=== PATIENT | female | born 1960 | race Caucasian/White ===

== ENCOUNTER 2019-06-06 23:51 | Emergency (ER) | payer MEDICARE ==
[~2019-06-06] VITALS: Ht 165.1 cm; Wt 80.7 kg
[2019-06-07 00:07] VITALS: BP 124/83
--- NOTE | 2019-06-07 00:08 | NUR ---
ED Nurse Note: Patient walked in to ER c/o lower back pain 04/28. Stated that helped her friend to pull her up and after that having severe lower back pain. AAO x4, VSS at this time, skin is warm to touch.
[2019-06-07] MEDS: Ketorolac 60mg Inj IM ONE (01:00)
--- NOTE | 2019-06-07 01:05 | NUR ---
ED Nurse Note: pt refused medication decadron, pt states it doesn't work. ERMD notified.
[2019-06-07] MEDS: Dexamethasone 4mg/ml vial IM ONE ×2 (01:15→01:51)
[2019-06-07] MEDS ORDERED: GABAPENTIN400 MG ORAL (01:28)
--- NOTE | 2019-06-07 01:50 | NUR ---
ED Nurse Note: pt states she wants to try decadron, ERMD notified, given med per ERMD order via IM injection, pt tolerated well.
[2019-06-07 01:59] VITALS: BP 115/80
--- NOTE | 2019-06-07 02:00 | NUR ---
ED Nurse Note: pt cleared to be d/c per ERMD, pt discharge and aftercare instruction provided w/ prescription, pt education done via discussion and handout, pt advised to follow up with pcp or ortho specialist, or return to ed if changes in condition, pt vss, ambulates w/ steady gait, left w/ all belongings.
--- NOTE | 2019-06-09 22:00 | Emergency Room Report ---
History of Present Illness General Chief Complaint: Back Pain-No Injury Source: Patient Present Illness Allergies: Coded Allergies: AZITHROMYCIN (Verified Allergy, Unknown, 06/06/19) PENICILLINS (Verified Allergy, Unknown, 06/06/19) Nursing Documentation-[facility] Past Medical History: No History, Except For Physical Exam Vital Signs Date Time Temp Pulse Resp B/P (MAP) Pulse Ox O2 Delivery O2 Flow Rate FiO2 06/06/19 23:56 98.4 74 16 124/83 (97) 98 Room Air Medical Decision Making Diagnostic Impression: Primary Impression: Back pain Last Vital Signs Date Time Temp Pulse Resp B/P (MAP) Pulse Ox O2 Delivery O2 Flow Rate FiO2 06/07/19 01:59 98.2 70 16 115/80 98 Room Air Status: improved Disposition: HOME, SELF-CARE Condition: Stable Scripts Gabapentin* (GABAPENTIN*) 400 Mg Capsule 400 MG ORAL THREE TIMES A DAY, #30 CAP 0 Refills Prov: Johnny Victor MD 06/07/19 Referrals: [facility],REFERRING (PCP) Patient Instructions: Back Pain, Adult Johnny Victor MD Jun 09, 2019 22:00
== END 2019-06-07 01:59 | disposition home or self-care (01) ==
LOC: EMR 06-07 01:43
DX: M54.9 Dorsalgia, unspecified (principal); Z88.0 Allergy status to penicillin
CPT/HCPCS: 96372; 99283; J1100